=== PATIENT | female | born 1955 | race Caucasian/White ===

== ENCOUNTER 2024-03-20 10:40 | Emergency (ER) | payer MEDICARE, OTHER, SELFPAY ==
[2024-03-20 10:45] VITALS: BP 130/77
[2024-03-20 11:17] LABS: APTT 34.4 Sec (23.4-35.0); INR 1.16; PT 14.6 Sec (11.4-14.6)
[2024-03-20 11:41] LABS: ALT (SGPT) 14 U/L (0-35); AST (SGOT) 17 U/L (14-36); Albumin 3.7 g/dl (3.5-5.0); Alkaline Phosphatase 73 U/L (38-126); Blood Urea Nitrogen 9 mg/dl (7-17); Carbon Dioxide 25 mmol/L (22-30); Chloride 94 mmol/L (98-107); Glucose 93 mg/dl (70-99); Lipase 22 U/L (23-300); Potassium 3.6 mmol/L (3.5-5.1); Sodium 130 mmol/L (135-145); Total Protein 6.2 g/dl (6.3-8.2); eGFR > 60.00
[2024-03-20 11:52] LABS: % Basophils 0.4 % (0-2); % Eosinophils 0.1 % (0-6); % Immature Granulocytes 0.6 % (0-0.5); % Lymphocytes 6.1 % (20.5-51.1); % Monocytes 8.6 % (1.7-9.3); % Neutrophils 84.2 % (42.2-75.2); Absolute Basophils 0.1 10^3/uL (0-0.2); Absolute Immature Granulocytes 0.1 10^3/uL (0-0.05); Absolute Lymphocytes 0.8 10^3/uL (1.2-3.4); Absolute Monocytes 1.1 10^3/uL (0.1-0.6); Absolute Neutrophils 11.1 10^3/uL (1.4-6.5); Hematocrit 37.9 % (37.0-47.0); Hemoglobin 13.5 g/dL (12.0-16.0); Mean Corp Hgb Conc. 35.6 g/dL (33.0-37.0); Mean Corpuscular Hgb 33.9 pg (27.0-31.0); Mean Corpuscular Volume 95.2 fL (81.0-99.0); Mean Platelet Volume 10.2 fL (7.4-10.4); Nucleated Red Blood Cells % 0 %; Platelet Count 172 10^3/uL (130-400); Red Blood Cell Count 3.98 10^6/uL (4.20-5.40); White Blood Cell Count 13.2 10^3/uL (4.8-10.8)
--- NOTE | 2024-03-20 12:11 | ED.GENMED ---
History of Present Illness
General
Chief Complaint: Abdominal Symptoms
Time Seen by Provider: 03/20/24 12:04
History of Present Illness
History of Present Illness:
68-year-old female presents the emergency department for evaluation of generalized abdominal pain associated with nausea, vomiting, and diarrhea over the past 3 to 4 days. Has had scant amount of rectal bleeding for the past 24 hours. Not on
anticoagulants or antiplatelets. No ill contacts at home. Denies any recent concerning or suspicious food intake. No recent international travel. No recent antibiotics in the past 90 days
Past History
Past History
ED Past Medical History: HTN
ED Past Surgical History: None
Social History
Tobacco: Non-smoker
Alcohol: Daily
Personal:
Living: with family
Review of Systems
Review of Systems
Allergies reviewed?: Yes
All Other Systems: ROS reviewed and negative except as documented in HPI and ROS
Phy Exam
Physical Exam
Physical Exam:
GEN: Appears to be in pain
Eyes: PERRLA, EOMs intact, no scleral icterus
HENT: NCAT, oral mucosa moist
Lungs: CTAB, no wheezes, rales, rhonchi, normal chest wall excursion
Cardiac: RRR, no M/R/G, no peripheral edema. Radial pulses 2+ bilat
Abdomen: Soft, moderate tenderness to the abdomen generalized, nonfocal, no rigidity or peritoneal signs
Neuro: AO x 3
MSK: No gross deformity or ecchymosis. No edema. No digital clubbing
Skin: No rashes, petechiae. Normal color, no pallor or jaundice.
Psych: Calm, cooperative, proper hygiene
Course
Orders/Labs/Results
Orders:
Orders
03/20/24 10:53
Type+Screen Urgent
Complete Blood Count/With Diff Urgent
Comprehensive Metabolic Panel Urgent
Lipase Urgent
PTT Urgent
Prothrombin Time Urgent
03/20/24 12:22
CT Abd/Pel (IV only)-DH only Urgent
Comment:
Reason For Exam: abd pain, N/V/D
0.9% Sodium Chloride 1000 ml [Nss] 1,000 ml IV BOLUS
Ketorolac [Toradol] 15 mg IV NOW STA
Ondansetron Injectable [Zofran] 4 mg IV NOW STA
Abnormal Lab Results
03/20/24
10:53
WBC 13.2 H 10^3/uL
(4.8-10.8)
RBC 3.98 L 10^6/uL
(4.20-5.40)
MCH 33.9 H pg
(27.0-31.0)
Abs Immat Gran (auto) 0.1 H 10^3/uL
(0-0.05)
Absolute Neuts (auto) 11.1 H 10^3/uL
(1.4-6.5)
Absolute Lymphs (auto) 0.8 L 10^3/uL
(1.2-3.4)
Absolute Monos (auto) 1.1 H 10^3/uL
(0.1-0.6)
Immature Gran % 0.6 H %
(0-0.5)
Neutrophils % 84.2 H %
(42.2-75.2)
Lymphocytes % 6.1 L %
(20.5-51.1)
Sodium 130 L mmol/L
(135-145)
Chloride 94 L mmol/L
(98-107)
Total Protein 6.2 L g/dl
(6.3-8.2)
Lipase 22 L U/L
(23-300)
03/20/24 10:53
03/20/24 10:53
Vital Signs
Initial and Last Documented VS:
Initial Vital Signs
Temp Pulse BP Pulse Ox
98.8 F 107 130/77 98
06/22/24 10:45 03/20/24 10:45 03/20/24 10:45 03/20/24 10:45
Last Documented Vital Signs
Temp Pulse BP Pulse Ox
98.8 F 76 115/65 96
03/20/24 10:45 03/20/24 12:53 03/20/24 12:24 03/20/24 13:45
MDM/Problems Addressed
MDM/Problems Addressed:
Workup reveals acute colitis. Patient unable to provide stool specimens for culture testing in the emergency department. Provided with to go container and outpatient lab order. She is advised to hold Augmentin until stool samples provided however
if she cannot provide a sample by tonight would recommend she just begin the Augmentin to avoid any further delay in care. Labs are otherwise reassuring, outpatient GI follow-up recommended when acute colitis has resolved
*Critical Care Note
Total Time (30-74mins, 75-104mins- exclusive of procedures): Not Applicable
ED Attending Note
-
Portions of this chart may have been created with voice recognition software.� Occasional wrong word or��sound alike� substitutions may have occurred due to the inherent limitations of voice recognition software.
Discharge Plan
Departure
Patient Disposition: Home (Routine Discharge)
Date of Disposition: 03/20/24
Time of Disposition: 14:52
Patient with high blood pressure during this ER visit?: No
Discharge Problem:
Acute colitis
Instructions: Colitis (DC)
Prescriptions:
New
amoxicillin-pot clavulanate 875-125 mg tablet
1 tab PO BID Qty: 14 0RF
Referrals:
Denisse Lazcano MD [Family Provider] -
Glenn Sanchez MD [Active] - Call in 1-3 days for appt
Interventions
Interventions:
*Risk Screen - Suicide Last Done: 03/20/24 12:13
*General Assessment Last Done: 03/20/24 10:46
*Neglect/Abuse Screening Last Done: 03/20/24 12:13
ED- Fall Risk Assessment Last Done: 03/20/24 12:50
*ED COVID-19 Vaccine History Last Done: 03/20/24 10:46
EM-Gwxvdw-Ygunprulrt Assessment Last Done: 03/20/24 12:50
Discharge Date and Time
Print Language: CITIZEN OF [place]
[2024-03-20 12:13] VITALS: BMI 26.7
[2024-03-20 12:24] VITALS: BP 115/65
[2024-03-20] MEDS: NSS 1000 IV (12:37)
[2024-03-20] MEDS: ZOFRAN 4 MG IV (12:38)
[2024-03-20] MEDS: TORADOL 15 MG IV (12:38)
[2024-03-20 14:09] VITALS: BP 116/65
== END 2024-03-20 15:30 | disposition home or self-care (01) ==
LOC: EMR 10:40
PROVIDERS: EMERGENCY PHYSICIAN Emergency Medicine; FAMILY PHYSICIAN Internal Medicine
DX: K52.9 Noninfective gastroenteritis and colitis, unspecified (principal); I10 Essential (primary) hypertension
CPT/HCPCS: 99284; 96375; 96361; 96374; 74177; 80053; 83690; 85025; 85610; 85730; 86850; 86900; 86901; Q9967

== ENCOUNTER → 2024-03-22 07:29 | Outpatient (REF) | payer MEDICARE, OTHER, SELFPAY | LOC: REG 07:29 | PROVIDERS: ATTENDING PHYSICIAN Physician Assistant; FAMILY PHYSICIAN Internal Medicine | DX: K52.9 Noninfective gastroenteritis and colitis, unspecified (principal) | CPT/HCPCS: 87045; 87046; 87427 ==

== ENCOUNTER → 2024-04-19 06:29 | Day surgery (SDC) | payer MEDICARE, OTHER, SELFPAY | LOC: GI 06:29 | PROVIDERS: ATTENDING PHYSICIAN Internal Medicine Gastroenterology; FAMILY PHYSICIAN Internal Medicine | DX: R93.3 Abnormal findings on diagnostic imaging of other parts of digestive tract (principal); K64.8 Other hemorrhoids; K57.30 Diverticulosis of large intestine without perforation or abscess without bleeding; K63.89 Other specified diseases of intestine; K63.5 Polyp of colon | CPT/HCPCS: 45380; 88305 ==

== ENCOUNTER → 2024-10-14 11:28 | Outpatient (REF) | payer MEDICARE, OTHER, SELFPAY | LOC: WDC 11:28 | PROVIDERS: ATTENDING PHYSICIAN Obstetrics & Gynecology Gynecology; FAMILY PHYSICIAN Physician Assistant | DX: Z12.31 Encounter for screening mammogram for malignant neoplasm of breast (principal) | CPT/HCPCS: 77063; 77067 ==

== ENCOUNTER → 2025-02-16 11:58 | Outpatient (REF) | payer MEDICARE, OTHER, SELFPAY ==
[2025-02-16 13:05] LABS: % Basophils 0.5 % (0-2); % Eosinophils 1.4 % (0-6); % Immature Granulocytes 0.3 % (0-0.5); % Lymphocytes 25.7 % (20.5-51.1); % Monocytes 12.1 % (1.7-9.3); Absolute Eosinophils 0.1 10^3/uL (0-0.7); Absolute Lymphocytes 1.5 10^3/uL (1.2-3.4); Absolute Monocytes 0.7 10^3/uL (0.1-0.6); Absolute Neutrophils 3.5 10^3/uL (1.4-6.5); Hematocrit 39.3 % (37.0-47.0); Hemoglobin 13.8 g/dL (12.0-16.0); Mean Corp Hgb Conc. 35.1 g/dL (33.0-37.0); Mean Corpuscular Hgb 34.2 pg (27.0-31.0); Mean Corpuscular Volume 97.3 fL (81.0-99.0); Nucleated Red Blood Cells % 0 %; Platelet Count 215 10^3/uL (130-400); Red Blood Cell Count 4.04 10^6/uL (4.20-5.40); White Blood Cell Count 5.9 10^3/uL (4.8-10.8)
[2025-02-16 13:21] LABS: Blood Urea Nitrogen 15 mg/dl (7-17); Calcium 9.9 mg/dl (8.4-10.2); Carbon Dioxide 28 mmol/L (22-30); Chloride 105 mmol/L (98-107); Glucose 89 mg/dl (70-99); Potassium 4.6 mmol/L (3.5-5.1); Sodium 139 mmol/L (135-145); eGFR > 60.00
== END ==
LOC: REG 11:58
PROVIDERS: ATTENDING PHYSICIAN Student in an Organized Health Care Education/Training Program; FAMILY PHYSICIAN Physician Assistant
DX: Z01.818 Encounter for other preprocedural examination (principal)
CPT/HCPCS: 36415; 80048; 85025

== ENCOUNTER 2025-09-11 11:34 | Emergency (ER) | payer MEDICARE, OTHER, SELFPAY ==
[2025-09-11] VITALS (7 sets, daily range): BP systolic 102–165; BP diastolic 69–107; BMI 26.0
[2025-09-11] MEDS: ADENOCARD 6 MG IV (11:43)
[2025-09-11] MEDS: NSS 1000 IV (11:44)
[2025-09-11] MEDS: ADENOCARD 12 MG IV (11:44)
--- NOTE | 2025-09-11 12:02 | ED.GENMED ---
History of Present Illness
General
Chief Complaint: Heart Rate Problem
Source: patient and spouse
Exam Limitations: none
Time Seen by Provider: 09/11/25 11:42
Nursing documentation reviewed up to this point in time: agreed with
History of Present Illness
History of Present Illness:
70-year-old female with history of hypertension who presents to the ER for evaluation of palpitations and dizziness. 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
since that time. She reports sensation of racing heart and dizziness. She denies any chest pain. She does have some shortness of breath. She says she has had occasional shorter episodes that usually last for 10 seconds or so but never this
severe or persistent. She denies any known cardiac history and has never seen a hand i tube bender.
Past History
Past History
ED Past Medical History: HTN
ED Past Surgical History: None
Social History
Tobacco: Non-smoker
Alcohol: Daily
Personal:
Living: with family
Review of Systems
Review of Systems
All Other Systems: ROS reviewed and negative except as documented in HPI and ROS
Constitutional: Denies fever
Respiratory: Reports trouble breathing
Cardiac: Reports palpitations; Denies chest pain
ABD/GI: Denies abdominal pain, nausea or vomiting
Musculoskeletal: Denies neck pain
Neurological: Reports dizzy; Denies headache
Phy Exam
Physical Exam
Physical Exam:
General: Awake, alert, oriented x3; anxious appearing but nontoxic
Head: Normocephalic, atraumatic
Eyes: Conjunctiva normal, EOMI
Throat: Airway intact, handling secretions
Neck: Trachea midline, supple without meningismus
Lungs: Clear to auscultation bilaterally, no wheezing, rales, rhonchi
Heart: Tachycardia with ostensibly regular rhythm, no murmurs, gallops, or rubs appreciated within the limits of severe tachycardia
Abd: Soft, non distended, nontender
Neuro: Grossly intact
Skin: Warm and dry
Extremities: No edema in extremities, equal pulses in all extremities
Scores
Heart Failure Risk
Heart Failure Risk Score: Not Applicable
Heart Score for Chest Pain Patients
STEMI patient?: Not applicable
Withdrawal Assessment of Alcohol
Withdrawal Assessment Completed?: Not applicable
Course
Orders/Labs/Results
Orders:
Orders
09/11/25
Electrocardiogram (*1) Stat
Reason for Study: Chest Pain
Comment: DONE NO ORDER ENTERED
09/11/25 11:35
ECG [Electrocardiogram (*1)] Urgent
Reason for Study: Palpitations
EKG- Treatment ONCE
09/11/25 11:43
Adenosine [Adenocard] 6 mg IV NOW STA
09/11/25 11:44
Adenosine [Adenocard] 12 mg IV NOW STA
09/11/25 11:53
0.9% Sodium Chloride 1000 ml [Nss] 1,000 ml IV BOLUS
09/11/25 11:56
Complete Blood Count/With Diff Urgent
Comprehensive Metabolic Panel Urgent
Magnesium Urgent
Comment: ADD ON
TSH Reflex To Free T4 Urgent
09/11/25 11:57
Add On- LAB Urgent
Tests Added?: Magnesium
09/11/25 12:50
Potassium Chloride [KCl] 40 meq PO NOW STA
Abnormal Lab Results
09/11/25
11:56
MCH 33.7 H pg
(27.0-31.0)
Absolute Monos (auto) 0.9 H 10^3/uL
(0.1-0.6)
Neutrophils % 41.8 L %
(42.2-75.2)
Monocytes % 12.1 H %
(1.7-9.3)
Potassium 3.1 L mmol/L
(3.5-5.1)
Carbon Dioxide 20 L mmol/L
(22-30)
Glucose 134 H mg/dl
(70-99)
09/11/25 11:56
09/11/25 11:56
Vital Signs
Initial and Last Documented VS:
Initial Vital Signs
Temp Pulse Resp BP Pulse Ox
36.5 C 211 18 157/82 98
09/11/25 11:39 09/11/25 11:39 09/11/25 11:39 09/11/25 11:39 09/11/25 11:39
Last Documented Vital Signs
Temp Pulse Resp BP Pulse Ox
36.5 C 95 25 140/82 98
09/11/25 11:39 09/11/25 12:15 09/11/25 12:15 09/11/25 12:00 09/11/25 12:15
MDM/Problems Addressed
Differential Diagnosis Includes:
SVT, A-fib, a flutter
MDM/Problems Addressed:
70-year-old female presents with palpitations and dizziness that started abruptly prior to arrival. Hypertensive and markedly tachycardic in triage. She was immediately brought back to room, placed on quality assurance monitor and EKG obtained. She has
narrow complex tachycardia regular consistent with an SVT. IV access established (usual lab work drawn and sent). Patient was given adenosine 6 mg x 1 without response and then was given 12 mg adenosine with good response, converted to sinus
rhythm. Patient feeling much better symptoms resolved after treatment. Denies prior history of SVT but she has had intermittent episodes of dizziness in the past (presumably shorter episodes). Will plan to continue to monitor on telemetry,
monitor for recurrence, follow-up on labs and reassess.
Patient remains in sinus rhythm and asymptomatic on clinical reassessment. Labs reviewed and were significant for mild hypokalemia and so she was given oral potassium here. Stable for discharge at this point we will start on low-dose Toprol and
refer to cardiology for close outpatient follow-up. She will need repeat labs to recheck potassium. Spoke to patient about follow-up plan and return precautions, all questions answered.
Acute Exacerbation and/or Progression of Chronic Illness: HTN
*Pulse Oximetry
SaO2: 100
Oxygen Mode of Delivery: Room air
Patient hypoxic: no (100%)
*EKG
Interpreted by ED Provider?: Yes
Heart Rate: 193
Rate: tachycardiac
Rhythm: SVT
[place]: left axis deviation
Interval: normal interval
QRS Pattern: normal QRS
Ischemia: non-specific ST changes
*Critical Care Note
Total Time (30-74mins, 75-104mins- exclusive of procedures): 30
comment:
Critical care statement: A total of 30 minutes of critical care time was provided for this patient. This includes management of unstable vital signs, evaluation of the patient at bedside, frequent reassessment, discussion with
consultants/hospitalist, and review of pertinent medical records. This time was separate from time utilized to perform any aforementioned documented procedures
Data Reviewed
Source: patient and spouse
Update Note
Update Note:
RHYTHM STRIPS FROM ADENOSINE TREATMENT BELOW:
ED Attending Note
-
Portions of this chart may have been created with voice recognition software.� Occasional wrong word or��sound alike� substitutions may have occurred due to the inherent limitations of voice recognition software.
Discharge Plan
Departure
Patient Disposition: Home (Routine Discharge)
Date of Disposition: 09/11/25
Time of Disposition: 12:52
Patient with high blood pressure during this ER visit?: Yes
Discharge Problem:
SVT (supraventricular tachycardia), Hypokalemia
Instructions: Supraventricular tachycardia (SVT)
Prescriptions:
New
metoprolol succinate [Toprol XL] 25 mg tablet extended release 24 hr
12.5 mg PO DAILY Qty: 30 0RF
No Action
amoxicillin-pot clavulanate 875-125 mg tablet
1 tab PO BID Qty: 14 0RF
Referrals:
Kevan Wells MD [Active, Cardiology] - Call in 1-3 days for appt
Activity Restrictions/Additional Instructions:
You should call the hand i tube bender office tomorrow to schedule follow-up within the next 1 to 2 weeks. Please return if your symptoms return or if you develop any new symptoms that are concerning to you.
Thank you for visiting the Emergency Department at [facility].
1. Please schedule a follow up appointment as directed. Call first thing tomorrow morning to make an appointment.
2. If indicated, please take your medications as instructed and indicated on discharge paperwork.
3. If any of your symptoms do not improve, or persist, or become more severe within 6-12 hours, please return to the emergency department for further care.
4. Please return to the emergency department if you develop a headache, neck pain/stiffness, fever greater than 100.4F, chest pain, shortness of breath, persistent nausea, vomiting, slurred speech, difficulty walking, numbness/tingling, weakness,
signs of infection or any other symptoms that are worrisome to you.
Please call [phone] if you have any questions.
Interventions
Interventions:
*Risk Screen - Suicide Last Done: 09/11/25 11:40
*General Assessment Last Done: 09/11/25 11:59
*Neglect/Abuse Screening Last Done: 09/11/25 11:40
*ED COVID-19 Vaccine History Last Done: 09/11/25 11:59
*ED Influenza Vaccine History Last Done: 09/11/25 11:59
ED- Cardiac Assessment Last Done: 09/11/25 11:50
ED- Pulmonary Assessment Last Done: 09/11/25 11:50
Discharge Date and Time
Print Language: [place]
[2025-09-11 12:08] LABS: Hematocrit 39.7 % (37.0-47.0); Hemoglobin 14.2 g/dL (12.0-16.0); Mean Corp Hgb Conc. 35.8 g/dL (33.0-37.0); Mean Corpuscular Volume 94.3 fL (81.0-99.0); Nucleated Red Blood Cells % 0 %; Platelet Count 217 10^3/uL (130-400); Red Cell Dist. Width 12.5 % (11.5-14.5)
[2025-09-11 12:22] LABS: ALT (SGPT) 23 U/L (0-35); AST (SGOT) 31 U/L (14-36); Albumin 4.7 g/dl (3.5-5.0); Alkaline Phosphatase 79 U/L (38-126); Blood Urea Nitrogen 17 mg/dl (7-17); Calcium 9.6 mg/dl (8.4-10.2); Carbon Dioxide 20 mmol/L (22-30); Chloride 104 mmol/L (98-107); Estimated Creatinine Clearance 79 ml/min; Glucose 134 mg/dl (70-99); Magnesium 1.8 mg/dl (1.6-2.3); Potassium 3.1 mmol/L (3.5-5.1); Sodium 137 mmol/L (135-145); Total Protein 7.3 g/dl (6.3-8.2); eGFR > 60.00
[2025-09-11] MEDS: KCL 40 MEQ PO (13:03)
== END 2025-09-11 13:19 | disposition home or self-care (01) ==
LOC: EMR 11:34
PROVIDERS: EMERGENCY PHYSICIAN Emergency Medicine
DX: I47.10 Supraventricular tachycardia, unspecified (principal); E87.6 Hypokalemia; I10 Essential (primary) hypertension
CPT/HCPCS: 96374; 96361; 99284; 80053; 83735; 84439; 84443; 85025; 93005